=== PATIENT | female | born 1950 | race Caucasian/White ===

== ENCOUNTER 2017-08-03 10:12 | Observation (INO) | payer OTHER, MEDICARE ==
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
[2017-08-03] MEDS ORDERED: NS 1,000 ML IV ONE (10:26)
[2017-08-03] MEDS ORDERED: HYDROmorphONE/DILAUDID 1 MG/ML INJ IVP ONE ×2 (10:26→10:45)
[2017-08-03] MEDS ORDERED: IOPAMIDOL (ISOVUE-300) 100 ML BTL ONE ×2 (10:28→11:16)
[2017-08-03 10:44] LABS: % IMMATURE GRANULYOCYTES 1.2 % (0.0-1.1); ABSOLUTE IMMATURE GRANULOCYTES 0.09 10^3/uL (0.00-0.10); ADD DIFF? NO; ADD MORPH? NO; ADD SCAN? NO; ATYPICAL LYMPHOCYTE FLAG 0 (0-99); FRAGMENT RBC FLAG 0 (0-99); HEMATOCRIT 45.9 % (38.0-47.0); HEMOGLOBIN 15.8 g/dL (12.6-16.3); LEFT SHIFT FLG 0 (0-99); LIPEMIA HEMOLYSIS FLAG 90 (0-99); MEAN CELL HEMOGLOBIN 30.4 pg (27.9-34.1); MEAN CELL HEMOGLOBIN CONCENTR. 34.4 g/dL (32.4-36.7); MEAN CELL VOLUME 88.3 fL (81.5-99.8); MEAN PLATELET VOLUME 9.8 fL (8.7-11.7); PLATELET CLUMPS FLAG 0 (0-99); PLATELET COUNT 177 10^3/uL (150-400); RED CELL DISTRIBUTION WIDTH 13.3 % (11.5-15.2)
[2017-08-03] MEDS ORDERED: ONDANSETRON 4 MG/2 ML VIAL ONE (11:02)
[2017-08-03] MEDS ORDERED: ONDANSETRON 4 MG/2 ML VIAL IVP ONE (11:04)
[2017-08-03 11:12] LABS: ANION GAP 11 mEq/L (8-16); CALCIUM 9.6 mg/dL (8.5-10.4); CARBON DIOXIDE 26 mEq/l (22-31); CHLORIDE 105 mEq/L (97-110); CREATININE 0.7 mg/dL (0.6-1.0); GLOMERULAR FILTRATION RATE > 60; GLUCOSE 126 mg/dL (70-100); POTASSIUM 3.7 mEq/L (3.5-5.2); SODIUM 142 mEq/L (134-144)
[2017-08-03] MEDS ORDERED: oxyCODONE IR 5 MG TAB PO PRN (14:31)
[2017-08-03] MEDS ORDERED: DIAZEPAM 5 MG TAB PO PRN (14:31)
[2017-08-03] MEDS ORDERED: ONDANSETRON 4 MG/2 ML VIAL IVP PRN (14:31)
[2017-08-03] MEDS ORDERED: HYDROmorphone HCL/NS/PF 0.4 MG/2 ML SYR IVP PRN (14:31)
[2017-08-03] MEDS ORDERED: KETOROLAC 30 MG/1 ML SDV IVP ONE (14:41)
[2017-08-03] MEDS ORDERED: D5W 1/2 NS 1,000 ML IV SCH (14:45)
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
[2017-08-03 15:35] LABS: COLOR YELLOW; LEUKOCYTE ESTERASE,URINE NEGATIVE (NEGATIVE); NITRITE,URINE NEGATIVE (NEGATIVE)
[2017-08-03 15:45] LABS: RBC,URINE NONE SEEN /hpf (0-3)
[2017-08-03] MEDS: ACETAMINOPHEN 325 MG TAB PO PRN (20:01)
[2017-08-03] MEDS: IBUPROFEN 600 MG TAB PO SCH (21:07)
[2017-08-04] MEDS: IBUPROFEN 600 MG TAB PO SCH (05:16)
[2017-08-04 08:05] VITALS: BP 160/81; PULSE 79; RESP 16; TEMP 97.5; O2SAT 90
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
[2017-08-04] MEDS ORDERED: ENOXAPARIN 40 MG/0.4 ML SYR SC SCH (09:00)
--- NOTE | 2017-08-04 10:40 | ASMTCMCOM ---
CM Note CM Note Notes: Pt ready for DC today and has no DC needs. Date Signed: 08/04/2017 10:39 AM Electronically Signed By:Rosario Greer LCSW
[2017-08-04] MEDS ORDERED: KETOROLAC 15 MG/1 ML SDV IVP SCH (12:00)
[2017-08-04] MEDS: ACETAMINOPHEN 325 MG TAB PO PRN (12:05)
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
--- NOTE | 2017-08-04 14:17 | ASDISCHSUM ---
Discharge Information Plan Status: Medically Cleared to Leave: Discharge Date:08/04/2017 12:25 PM CM D/C Disposition: ADT D/C Disposition:Home, Routine, Self-Care Projected Discharge Date:08/04/2017 12:25 PM Transportation at D/C: Discharge Delay Reason: Follow-Up Date:08/04/2017 12:25 PM Discharge Slot: Final Diagnosis: Placement Information Patient Contact Information Contact Name:LINDSAY Relationship: [address] Work Phone: City:[email or web address] [facility] Phone: State/Zip Code:[place] [address] Email: Financial Information Financial Class: Primary Plan Desc:MEDICARE OUTPATIENT Primary Plan Number:[id number] Secondary Plan Desc:[employer]/M[employer] SUPPLEMENT Secondary Plan Number:[id number] Assessment Information LACE LACE Length of stay for Answers: Less than 1 day current admission Acuity / Level of Care Answers: Was the patient admitted to hospital via the emergency department? Yes: Emergency dept visits in Answers: 1 last 6 months Score: 4 Date Signed: 08/03/2017 01:26 PM Electronically Signed By:Gerson Kilgore LCSW [facility] CM Progress Note CM Note CM Note Notes: Pt ready for DC today and has no DC needs. Date Signed: 08/04/2017 10:39 AM Electronically Signed By:Rosario Greer LCSW Intervention Information
== END 2017-08-04 12:25 | disposition home or self-care (01) ==
LOC: EDUNIT# → F3N 15:52
PROVIDERS: ADMIT Surgery; ATTEND Surgery
DX: S22.42XA Multiple fractures of ribs, left side, initial encounter for closed fracture (principal); S20.212A Contusion of left front wall of thorax, initial encounter; V43.52XA Car driver injured in collision with other type car in traffic accident, initial encounter; Y92.410 Unspecified street and highway as the place of occurrence of the external cause; Y93.9 Activity, unspecified; Y99.9 Unspecified external cause status
CPT/HCPCS: 71010; 71260; 73502; 92523; 97161; 97165; G0378; G8978; G8979; G8980; G8987; G8989; G9165; G9166; G9167; J1170; J1885; J2405; Q9967; G0390; J1650